=== PATIENT | female | born 1985 | race Two or more races ===

== ENCOUNTER 2021-09-07 06:59 | Inpatient (IN) | payer OTHER ==
[~2021-09-07] VITALS: Ht 162.6 cm; Wt 82.6 kg
[2021-09-08] MEDS ORDERED: PERCOCET 5-3251 EACH PO (09:05)
[2021-09-08] MEDS ORDERED: IBU800 MG PO (09:06)
== END 2021-09-08 11:10 | disposition home or self-care (01) | DRG 743 ==
LOC: CIR.AMB 06:59 → O/R 14:12 → OB/GYN 14:45
PROVIDERS: ADMIT Obstetrics & Gynecology; ATTEND Obstetrics & Gynecology
PROC: 0UT74ZZ Resection of Bilateral Fallopian Tubes, Percutaneous Endoscopic Approach (ICD-10-PCS; 2021-09-07)
PROC: 0TJB8ZZ Inspection of Bladder, Via Natural or Artificial Opening Endoscopic (ICD-10-PCS; 2021-09-07)
PROC: 0UT94ZZ Resection of Uterus, Percutaneous Endoscopic Approach (ICD-10-PCS; principal; 2021-09-07 10:15)
DX: D25.1 Intramural leiomyoma of uterus (principal); D25.2 Subserosal leiomyoma of uterus; N80.0 Endometriosis of uterus; N72 Inflammatory disease of cervix uteri; Z20.822 Contact with and (suspected) exposure to COVID-19